=== PATIENT | male | born 1975 | race American Indian/Alaskan Native ===

== ENCOUNTER 2018-04-16 11:59 | Emergency (ER) | payer MEDICARE ==
[2018-04-16 12:09] VITALS: BP 109/68
--- NOTE | 2018-04-16 13:14 | Emergency Department Report ---
ED General Adult HPI - General Chief complaint: Rectal Pain Stated complaint: SEVER PAIN Time Seen by Provider: 04/16/18 12:41 Source: patient Mode of arrival: Wheelchair Limitations: No Limitations - History of Present Illness Initial comments: Rectal pain, no fever no discharge has been using hemorrhoid creams eqkuovqhyzaetwhayyk[id number]kkkqqxiznbj onofsomerectalpain -: Gradual, days(s) Radiation: non-radiation Severity scale (0 -10): 4 Quality: sharp Consistency: intermittent Associated Symptoms: denies other symptoms. denies: confusion, chest pain, cough, diaphoresis, fever/chills, headaches, loss of appetite, malaise, nausea/ vomiting, rash, seizure, shortness of breath, syncope, weakness - Related Data Previous Rx's Medication Instructions Recorded Last Taken Type Docusate Sodium [Colace] 100 mg PO BID PRN #30 capsule 04/16/18 Unknown Rx HYDROcodone/APAP 5-325 [Thompson 1 each PO Q6HR PRN #10 tablet 04/16/18 Unknown Rx 5/325] Psyllium Husk (with Sugar) 368 gm PO DAILY PRN #1 powder 04/16/18 Unknown Rx [Metamucil Powder] Allergies Allergy/AdvReac Type Severity Reaction Status Date / Time No Known Allergies Allergy Unverified 04/16/18 12:07 ED Review of Systems ROS: Stated complaint: SEVER PAIN Other details as noted in HPI Comment: All other systems reviewed and negative Constitutional: denies: diaphoresis, fever, malaise Eyes: denies: eye discharge, vision change ENT: denies: dental pain, hearing loss, epistaxis Respiratory: denies: shortness of breath, SOB with exertion, SOB at rest, stridor Cardiovascular: denies: chest pain, palpitations, dyspnea on exertion, orthopnea , edema, syncope Gastrointestinal: denies: abdominal pain, nausea, vomiting Genitourinary: denies: urgency, dysuria, frequency, hematuria, discharge, testicular pain, testicular mass Neurological: denies: headache, weakness, numbness, paresthesias, confusion Psychiatric: denies: auditory hallucinations, visual hallucinations, homicidal thoughts ED Past Medical Hx - Past Medical History Previous Medical History?: No - Surgical History Additional Surgical History: leg - Social History Smoking Status: Current Every Day Smoker Substance Use Type: None - Medications Home Medications: Home Medications Medication Instructions Recorded Confirmed Last Taken Type Docusate Sodium [Colace] 100 mg PO BID PRN #30 capsule 04/16/18 Unknown Rx HYDROcodone/APAP 5-325 [Thompson 1 each PO Q6HR PRN #10 tablet 04/16/18 Unknown Rx 5/325] Psyllium Husk (with Sugar) 368 gm PO DAILY PRN #1 powder 04/16/18 Unknown Rx [Metamucil Powder] ED Physical Exam - General Limitations: No Limitations General appearance: alert, anxious - Head Head exam: Present: atraumatic, normocephalic - Eye Eye exam: Present: PERRL, EOMI - Neck Neck exam: Present: normal inspection. Absent: tenderness, meningismus - Respiratory Respiratory exam: Present: normal lung sounds bilaterally. Absent: respiratory distress, wheezes, rales, rhonchi - GI/Abdominal GI/Abdominal exam: Present: soft. Absent: distended, tenderness, guarding, rebound, rigid, pulsatile mass - Rectal Rectal exam: Present: normal inspection, heme (-) stool, hemorrhoids, tenderness. Absent: fecal impaction, mass - Extremities Exam Extremities exam: Present: normal inspection, normal capillary refill ED Course Vital Signs 04/16/18 12:07 Temperature 98.8 F Pulse Rate 76 Respiratory 18 Rate Blood Pressure 109/68 O2 Sat by Pulse 98 Oximetry ED Medical Decision Making - Medical Decision Making Symptoms consistent with hemorrhoids and has no thrombosed external hemorrhoids , there was no rectal masses noted in the vault no fecal impaction was noted no discharge or fever, no anal fissure was appreciated we will start intervention for hemorrhoids, he will need follow-up with general surgery Critical care attestation.: If time is entered above; I have spent that time in minutes in the direct care of this critically ill patient, excluding procedure time. ED Disposition Clinical Impression: Acute hemorrhoid Disposition: DC-01 TO HOME OR SELFCARE Is pt being admited?: No Condition: Stable Instructions: Hemorrhoids (ED) Additional Instructions: Sitz bath 4 times a day medicines as directed she the doctor listed return if worse Prescriptions: Docusate Sodium [Colace] 100 mg PO BID PRN #30 capsule PRN Reason: Constipation HYDROcodone/APAP 5-325 [Thompson 5/325] 1 each PO Q6HR PRN #10 tablet PRN Reason: Pain Psyllium Husk (with Sugar) [Metamucil Powder] 368 gm PO DAILY PRN #1 powder PRN Reason: Constipation Referrals: PRIMARY CARE, [Primary Care Provider] - 3-5 Days Time of Disposition: 13:15
[2018-04-16] MEDS ORDERED: MOTRIN PO ONE (13:18)
== END 2018-04-16 13:24 | disposition home or self-care (01) ==
LOC: ED 11:59
DX: K64.9 Unspecified hemorrhoids (principal); F17.200 Nicotine dependence, unspecified, uncomplicated
CPT/HCPCS: 99282